=== PATIENT | male | born 1985 | race Caucasian/White ===

== ENCOUNTER 2023-10-30 13:14 | Inpatient (IN) | payer MEDICAID ==
[~2023-10-30] VITALS: Ht 167.6 cm; Wt 106.3 kg
[2023-10-30 13:50] LABS: Basophils # (auto) 0.1 10 ^3/uL (0-0.2); Basophils % (auto) 0.8 % (0.0-2.0); Eosinophils # (auto) 0.1 10 ^3/uL (0-0.8); Hematocrit 38.9 % (41.0-53.0); Hemoglobin 13.7 g/dL (13.5-17.5); Lymphocytes # (auto) 2.7 10 ^3/uL (0.4-5.4); Lymphocytes % (auto) 17.7 % (10.0-50.0); Mean Corpuscular Hgb Conc. 35.2 g/dL (32.0-36.0); Mean Corpuscular Volume 82.4 fL (80.0-100.0); Monocytes # (auto) 1.2 10 ^3/uL (0-1.3); Monocytes % (auto) 8.3 % (0.0-12.0); Neutrophils # (auto) 10.9 10 ^3/uL (1.6-8.6); Neutrophils % (auto) 72.2 % (37.0-80.0); Platelet Count (auto) 269 10^3/uL (140-450); Red Blood Cells 4.72 10^6/uL (4.5-5.90); Red Cell Distribution Width 15.2 % (11.8-14.3); White Blood Cell 15.1 10^3/uL (4.4-10.8)
[2023-10-30 14:01] VITALS: PULSE 46; RESP 12; O2SAT 98
[2023-10-30] MEDS: cloNIDine HCL 0.1 MG TAB PO ONE (14:01)
[2023-10-30] MEDS: SODIUM CHLORIDE 0.9% 1,000 ML IV ONE ×2 (14:01→16:32)
[2023-10-30 14:04] LABS: INR 1.14 (0.9-1.15); Partial Thromboplastin Time 23.9 SEC (24.5-34.5)
[2023-10-30] MEDS: ASPirin 325 MG TAB PO ONE (14:06)
[2023-10-30 14:10] LABS: Alanine Aminotransferase 36 U/L (7-40); Alkaline Phosphatase 79 U/L (46-116); Anion Gap 10 (5-15); Aspartate Aminotransferase 24 U/L (13-40); BUN/Creatinine Ratio 7.5 (10.0-20.0); Bilirubin, Total 1.4 mg/dL (0.2-1.0); Blood Urea Nitrogen 12 mg/dL (9-23); Calcium 10.1 mg/dL (8.7-10.4); Carbon Dioxide 29 mmol/L (20-30); Chloride 103 mmol/L (98-107); Glucose 114 mg/dL (74-106); Potassium 3.3 mmol/L (3.5-5.1); Sodium 142 mmol/L (136-145); Total Protein 7.3 g/dL (5.7-8.2)
[2023-10-30] MEDS: ONDANSETRON HCL 4 MG/2 ML VIAL IV ONE (14:47)
[2023-10-30] MEDS: MORPHINE SULFATE 4 MG/ML SYR/VIAL IV ONE ×2 (14:47→16:13)
[2023-10-30] MEDS ORDERED: ACETAMINOPHEN 325 MG TAB PO PRN (15:15)
[2023-10-30] MEDS ORDERED: HYDROcodone-ACET 5/325MG TAB PO PRN (15:15)
[2023-10-30] MEDS: POTASSIUM EFFERVESENT TAB 25 MEQ PO ONE (15:31)
[2023-10-30] MEDS: HYDROmorphone HCL 2 MG/ML VL/or syr IV ONE (16:13)
[2023-10-30] MEDS: FAMOTIDINE (10MG/ML) 2ML VL IV ONE (17:11)
[2023-10-30] MEDS: cefTRIAXone 1GM/50ML D5W 50 ML IV ONE (17:12)
[2023-10-30] MEDS ORDERED: MORPHINE SULFATE INJ 2 MG/ml SYRG IV PRN (17:45)
[2023-10-30] MEDS ORDERED: NITROGLYCERIN 0.4 MG SL TAB SL PRN (17:45)
[2023-10-30] MEDS: ONDANSETRON HCL 4 MG/2 ML VIAL IV PRN (17:56)
[2023-10-30] MEDS: METOCLOPRAMIDE HCL 5MG/ml INJ 2ml VIAL IV ONE (18:02)
[2023-10-30] MEDS: MORPHINE SULFATE INJ 2 MG/ml SYRG IV PRN (18:25)
[2023-10-30] MEDS: hydrALAZINE HCL 20 MG/ML VL IV PRN (18:26)
[2023-10-30 18:33] LABS: Urine Bacteria None Seen /hpf (None Seen)
[2023-10-30 18:48] LABS: Urine Blood Negative /uL (Negative); Urine Clarity Clear (Clear); Urine Color Yellow (Yellow); Urine Mucus FEW (None Seen); Urine Protein, UAD 2+ (Negative); Urine Specific Gravity 1.019 (1.001-1.035); Urine Urobilinogen Normal (Negative); Urine WBC 1 /hpf (0 - 3)
[2023-10-30 19:25] VITALS: PULSE 102; RESP 18; O2SAT 98
[2023-10-30] MEDS: METOPROLOL TARTRATE 50 MG TAB PO ONE (21:00)
[2023-10-30] MEDS: cloNIDine HCL 0.1 MG TAB PO PRN (21:57)
[2023-10-30] MEDS: SODIUM CHLOR 0.9% PF (SALINE LOCK) 10ML VIAL/SYR IV SCH (22:00)
[2023-10-30] MEDS: amLODIPine BESYLATE 5 MG TAB PO ONE (23:29)
[2023-10-30] MEDS: dilTIAZem 25 MG/5 ML VIAL IV ONE (23:58)
[2023-10-31] VITALS (63 sets, daily range): BP systolic 101–205; BP diastolic 55–126; PULSE 65–109; RESP 12–32; TEMP 97.6–98.9; O2SAT 88–96
[2023-10-31] MEDS: dilTIAZem 125mg/125ml BAG KIT 100 ML IV SCH (00:01)
[2023-10-31 06:20] LABS: Basophils # (auto) 0 10 ^3/uL (0-0.2); Basophils % (auto) 0.1 % (0.0-2.0); Eosinophils # (auto) 0 10 ^3/uL (0-0.8); Eosinophils % (auto) 0.1 % (0.0-7.0); Hematocrit 41.8 % (41.0-53.0); Hemoglobin 14.4 g/dL (13.5-17.5); Lymphocytes # (auto) 1.9 10 ^3/uL (0.4-5.4); Lymphocytes % (auto) 7.9 % (10.0-50.0); Mean Corpuscular Hemoglobin 29.1 pg (28.0-32.0); Mean Corpuscular Hgb Conc. 34.5 g/dL (32.0-36.0); Mean Corpuscular Volume 84.2 fL (80.0-100.0); Monocytes # (auto) 2.5 10 ^3/uL (0-1.3); Monocytes % (auto) 10.3 % (0.0-12.0); Neutrophils % (auto) 81.6 % (37.0-80.0); Nucleated Red Blood Cells % 0.1 %; Platelet Count (auto) 297 10^3/uL (140-450); Red Blood Cells 4.97 10^6/uL (4.5-5.90); Red Cell Distribution Width 15.3 % (11.8-14.3); White Blood Cell 24.5 10^3/uL (4.4-10.8)
[2023-10-31 06:42] LABS: Alanine Aminotransferase 47 U/L (7-40); Alkaline Phosphatase 75 U/L (46-116); Anion Gap 20 (5-15); Aspartate Aminotransferase 39 U/L (13-40); BUN/Creatinine Ratio 7.5 (10.0-20.0); Blood Urea Nitrogen 12 mg/dL (9-23); Calcium 9.7 mg/dL (8.7-10.4); Chloride 101 mmol/L (98-107); Glucose 199 mg/dL (74-106); Sodium 138 mmol/L (136-145)
[2023-10-31 06:43] LABS: Bilirubin, Total 2.5 mg/dL (0.2-1.0); Total Protein 7.8 g/dL (5.7-8.2)
[2023-10-31 06:50] LABS: Carbon Dioxide 17 mmol/L (20-30)
[2023-10-31] MEDS: POTASSIUM CHL 20MEQ/100ML 100 ML IV ONE (07:43)
[2023-10-31] MEDS: cefTRIAXone 1GM/50ML D5W 50 ML IV SCH (09:32)
[2023-10-31] MEDS: METOPROLOL TARTRATE 50 MG TAB PO SCH (09:33)
[2023-10-31] MEDS: ASPirin 81 mg TAB PO SCH (09:34)
[2023-10-31] MEDS: amLODIPine BESYLATE 5 MG TAB PO SCH (09:34)
[2023-10-31] MEDS: FAMOTIDINE (10MG/ML) 2ML VL IV SCH (09:35)
[2023-10-31 10:46] LABS: Triglycerides 92 mg/dL (< 150)
[2023-10-31 10:47] LABS: Cholesterol 194 mg/dL (< 200); HDL Cholesterol 55 mg/dL (40-59); LDL Cholesterol 127 mg/dL (< 100)
[2023-10-31 12:23] LABS: Amphetamine Screen, Urine Neg (NEGATIVE); Barbiturate Scree,Urine Neg (NEGATIVE)
[2023-10-31 12:24] LABS: Benzodiazephine Screen, Urine Neg (NEGATIVE); Cannabinoid Screen, Urine Pos (NEGATIVE); Cocaine Screen, Urine Neg (NEGATIVE); Creatinine, Urine 211.35 mg/dL (30.0-125.0); Opiate Scree,Urine Pos (NEGATIVE); Phencyclidine Screen, Urine Neg (NEGATIVE)
[2023-10-31 16:07] LABS: Chloride 101 mmol/L (98-107); Potassium 3.6 mmol/L (3.5-5.1); Sodium 136 mmol/L (136-145)
[2023-10-31 16:08] LABS: Anion Gap 16 (5-15); Calcium 9.6 mg/dL (8.7-10.4); Carbon Dioxide 19 mmol/L (20-30)
[2023-10-31 16:13] LABS: BUN/Creatinine Ratio 7.6 (10.0-20.0); Blood Urea Nitrogen 17 mg/dL (9-23); Glucose 120 mg/dL (74-106)
[2023-10-31] MEDS: ATORVASTATIN 20 MG TAB PO SCH (21:41)
[2023-10-31] MEDS ORDERED: hydrALAZINE HCL 25 MG TAB PO SCH (22:00)
[2023-10-31] MEDS ORDERED: MELATONIN 5 MG TAB ONE (22:57)
[2023-10-31] MEDS: hydrALAZINE HCL 20 MG/ML VL IV PRN (22:58)
[2023-10-31] MEDS: MELATONIN 5 MG TAB PO SCH (22:58)
[2023-11-01] VITALS (40 sets, daily range): BP systolic 121–196; BP diastolic 81–119; PULSE 91–121; RESP 13–29; TEMP 97.6–98.3; O2SAT 92–97
[2023-11-01 03:58] LABS: Urine Bacteria None Seen /hpf (None Seen)
[2023-11-01 04:11] LABS: Sodium Urine < 10 mmol/L (40-220)
[2023-11-01 04:19] LABS: Creatinine, Urine 205.96 mg/dL (30.0-125.0)
[2023-11-01 04:46] LABS: Urine Amorphous Crystal FEW /hpf (None Seen); Urine Blood 2+ /uL (Negative); Urine Clarity Turbid (Clear); Urine Color Yellow (Yellow); Urine Hyaline Cast MANY /lpf (0 - 2); Urine Mucus FEW (None Seen); Urine Protein, UAD 2+ (Negative); Urine Specific Gravity 1.022 (1.001-1.035); Urine Urobilinogen Normal (Negative); Urine WBC 4 /hpf (0 - 3); Urine pH 5.5 (5.0-9.0)
[2023-11-01] MEDS: hydrALAZINE HCL 20 MG/ML VL IV ONE (05:29)
[2023-11-01 06:22] LABS: Anion Gap 13 (5-15); Carbon Dioxide 20 mmol/L (20-30); Chloride 98 mmol/L (98-107)
[2023-11-01 06:23] LABS: Calcium 9.5 mg/dL (8.7-10.4)
[2023-11-01 06:27] LABS: Uric Acid 10.8 mg/dL (3.7-9.2)
[2023-11-01 06:28] LABS: BUN/Creatinine Ratio 12.7 (10.0-20.0); Glucose 131 mg/dL (74-106)
[2023-11-01 06:29] LABS: Blood Urea Nitrogen 27 mg/dL (9-23); Sodium 131 mmol/L (136-145)
[2023-11-01 06:30] LABS: Phosphorus 3.6 mg/dL (2.4-5.1)
[2023-11-01 07:28] LABS: Hematocrit 39.9 % (41.0-53.0); Hemoglobin 13.7 g/dL (13.5-17.5); Mean Corpuscular Hemoglobin 28.5 pg (28.0-32.0); Mean Corpuscular Hgb Conc. 34.3 g/dL (32.0-36.0); Mean Corpuscular Volume 83.2 fL (80.0-100.0); Platelet Count (auto) 250 10^3/uL (140-450); Red Blood Cells 4.79 10^6/uL (4.5-5.90); Red Cell Distribution Width 15.9 % (11.8-14.3)
[2023-11-01 07:34] LABS: White Blood Cell 30.5 10^3/uL (4.4-10.8)
[2023-11-01 07:35] LABS: Band Neutrophils % (manual) 0; Basophils % (manual) 0 (0.0-2.0); Blast Cells 0; Eosinophils % (manual) 0 (0-7); Metamyelocytes % 0; Myelocytes % 0; Promyelocytes % 0; Reactive Lymphocytes 0
[2023-11-01] MEDS: hydrALAZINE HCL 20 MG/ML VL IV PRN (08:04)
[2023-11-01] MEDS: POTASSIUM CHL 20MEQ/100ML 100 ML IV ONE (10:13)
[2023-11-01] MEDS: POTASSIUM EFFERVESENT TAB 25 MEQ PO ONE (10:13)
[2023-11-01] MEDS: ISOSORBIDE MONONITRATE ER 60 MG TAB PO SCH (10:14)
[2023-11-01] MEDS: EMPAGLIFLOZIN 10 MG TAB PO SCH (10:14)
[2023-11-01 10:34] LABS: Lymphocytes % (manual) 15 (10.0-50.0); Monocytes % (manual) 9 (0-12)
[2023-11-01 10:35] LABS: Platelet Estimate Adequate
[2023-11-01] MEDS: NIFEdipine ER 30 MG TAB PO SCH (21:18)
[2023-11-01] MEDS: CARVEDILOL 12.5 MG TAB PO SCH (21:19)
[2023-11-01] MEDS ORDERED: NIFEdipine 10 MG CAP PO SCH (22:00)
[2023-11-02] VITALS (19 sets, daily range): BP systolic 112–162; BP diastolic 64–93; PULSE 83–95; RESP 12–28; TEMP 97.6–98; O2SAT 86–95
[2023-11-02 06:57] LABS: Basophils # (auto) 0 10 ^3/uL (0-0.2); Basophils % (auto) 0.1 % (0.0-2.0); Eosinophils # (auto) 0 10 ^3/uL (0-0.8); Hematocrit 34.7 % (41.0-53.0); Lymphocytes # (auto) 1.9 10 ^3/uL (0.4-5.4); Lymphocytes % (auto) 8.1 % (10.0-50.0); Mean Corpuscular Hemoglobin 28.9 pg (28.0-32.0); Mean Corpuscular Hgb Conc. 34.8 g/dL (32.0-36.0); Mean Corpuscular Volume 83.2 fL (80.0-100.0); Monocytes # (auto) 1.6 10 ^3/uL (0-1.3); Monocytes % (auto) 7.1 % (0.0-12.0); Neutrophils # (auto) 19.6 10 ^3/uL (1.6-8.6); Neutrophils % (auto) 84.7 % (37.0-80.0); Platelet Count (auto) 178 10^3/uL (140-450); Red Blood Cells 4.17 10^6/uL (4.5-5.90); Red Cell Distribution Width 15.4 % (11.8-14.3); White Blood Cell 23.1 10^3/uL (4.4-10.8)
[2023-11-02 07:15] LABS: Alanine Aminotransferase 538 U/L (7-40); Albumin 4.4 g/dL (3.2-4.8); Alkaline Phosphatase 80 U/L (46-116); Anion Gap 10 (5-15); Aspartate Aminotransferase 363 U/L (13-40); BUN/Creatinine Ratio 16.7 (10.0-20.0); Blood Urea Nitrogen 29 mg/dL (9-23); Calcium 9.4 mg/dL (8.7-10.4); Carbon Dioxide 24 mmol/L (20-30); Chloride 97 mmol/L (98-107); Glucose 118 mg/dL (74-106); Potassium 3.6 mmol/L (3.5-5.1); Sodium 131 mmol/L (136-145)
[2023-11-02 07:16] LABS: Bilirubin, Total 1.7 mg/dL (0.2-1.0); Total Protein 6.9 g/dL (5.7-8.2)
[2023-11-02 09:14] LABS: Hepatitis B Surface Antigen Negative (Negative)
[2023-11-02 09:36] LABS: Hepatitis A Ab IgM Negative
[2023-11-02 09:37] LABS: Hepatitis B Core IgM Negative; Hepatitis C Antibody Negative (Negative)
[2023-11-02] MEDS: LEVALBUTEROL HCL 1.25 MG/3 ML NEB NEB ONE (19:32)
[2023-11-02] MEDS: DOCUSATE SOD 100 MG CAP PO PRN (20:37)
[2023-11-02 20:47] LABS: COVID19 ANTIGEN SOFIA FIA NEGATIVE (NEGATIVE); Rapid Influenza A Negative (Negative); Rapid Influenza B Negative (Negative)
[2023-11-03] VITALS (16 sets, daily range): BP systolic 106–143; BP diastolic 59–80; PULSE 72–108; RESP 17–20; TEMP 97.5–98.4; O2SAT 90–99
[2023-11-03] MEDS: LEVALBUTEROL HCL 1.25 MG/3 ML NEB NEB SCH (00:06)
[2023-11-03 07:00] LABS: Basophils # (auto) 0 10 ^3/uL (0-0.2); Basophils % (auto) 0.1 % (0.0-2.0); Eosinophils # (auto) 0 10 ^3/uL (0-0.8); Eosinophils % (auto) 0.1 % (0.0-7.0); Hematocrit 33.4 % (41.0-53.0); Hemoglobin 11.6 g/dL (13.5-17.5); Lymphocytes # (auto) 2.5 10 ^3/uL (0.4-5.4); Lymphocytes % (auto) 12.3 % (10.0-50.0); Mean Corpuscular Hgb Conc. 34.9 g/dL (32.0-36.0); Mean Corpuscular Volume 83.3 fL (80.0-100.0); Monocytes # (auto) 1.9 10 ^3/uL (0-1.3); Monocytes % (auto) 9.5 % (0.0-12.0); Neutrophils # (auto) 15.8 10 ^3/uL (1.6-8.6); Nucleated Red Blood Cells % 0.1 %; Platelet Count (auto) 232 10^3/uL (140-450); Red Blood Cells 4.01 10^6/uL (4.5-5.90); Red Cell Distribution Width 15.3 % (11.8-14.3); White Blood Cell 20.3 10^3/uL (4.4-10.8)
[2023-11-03 07:08] LABS: Alanine Aminotransferase 454 U/L (7-40); Albumin 4.4 g/dL (3.2-4.8); Alkaline Phosphatase 99 U/L (46-116); Anion Gap 11 (5-15); BUN/Creatinine Ratio 20.4 (10.0-20.0); Blood Urea Nitrogen 30 mg/dL (9-23); Calcium 9.6 mg/dL (8.7-10.4); Carbon Dioxide 24 mmol/L (20-31); Chloride 98 mmol/L (98-107); Glucose 103 mg/dL (74-106); Potassium 3.2 mmol/L (3.5-5.1); Sodium 133 mmol/L (136-145)
[2023-11-03 07:09] LABS: Aspartate Aminotransferase 177 U/L (13-40); Bilirubin, Total 1.6 mg/dL (0.2-1.0)
[2023-11-03 09:29] LABS: Base Excess 2.1 mmol/L (-2.0-3.0)
[2023-11-03] MEDS: POTASSIUM CHL 20 Meq TABLET PO ONE (10:22)
[2023-11-03] MEDS: AZITHROMYCIN 500MG/ 250ML 250 ML IV ONE (13:55)
[2023-11-04] VITALS (13 sets, daily range): BP systolic 102–153; BP diastolic 63–84; PULSE 78–92; RESP 18–20; TEMP 97.9–99.6; O2SAT 90–96
[2023-11-04 06:17] LABS: Basophils # (auto) 0 10 ^3/uL (0-0.2); Basophils % (auto) 0.3 % (0.0-2.0); Eosinophils # (auto) 0 10 ^3/uL (0-0.8); Eosinophils % (auto) 0.2 % (0.0-7.0); Hematocrit 34.8 % (41.0-53.0); Hemoglobin 12.2 g/dL (13.5-17.5); Lymphocytes # (auto) 2.6 10 ^3/uL (0.4-5.4); Lymphocytes % (auto) 14.6 % (10.0-50.0); Mean Corpuscular Hemoglobin 29.7 pg (28.0-32.0); Mean Corpuscular Hgb Conc. 35.1 g/dL (32.0-36.0); Mean Corpuscular Volume 84.5 fL (80.0-100.0); Monocytes # (auto) 2.2 10 ^3/uL (0-1.3); Monocytes % (auto) 12.5 % (0.0-12.0); Neutrophils # (auto) 12.7 10 ^3/uL (1.6-8.6); Neutrophils % (auto) 72.4 % (37.0-80.0); Platelet Count (auto) 241 10^3/uL (140-450); Red Blood Cells 4.12 10^6/uL (4.5-5.90); Red Cell Distribution Width 15.5 % (11.8-14.3); White Blood Cell 17.5 10^3/uL (4.4-10.8)
[2023-11-04 06:22] LABS: Alanine Aminotransferase 326 U/L (7-40); Albumin 4.4 g/dL (3.2-4.8); Alkaline Phosphatase 115 U/L (46-116); Anion Gap 11 (5-15); Aspartate Aminotransferase 82 U/L (13-40); BUN/Creatinine Ratio 17.7 (10.0-20.0); Blood Urea Nitrogen 22 mg/dL (9-23); Calcium 9.5 mg/dL (8.7-10.4); Carbon Dioxide 24 mmol/L (20-31); Chloride 100 mmol/L (98-107); Glucose 100 mg/dL (74-106); Potassium 3.2 mmol/L (3.5-5.1); Sodium 135 mmol/L (136-145)
[2023-11-04 06:23] LABS: Bilirubin, Total 1.7 mg/dL (0.2-1.0); Total Protein 7.2 g/dL (5.7-8.2)
[2023-11-04 08:06] LABS: CMV IgG Antibody <0.60 U/mL (0.00-0.59); CMV IgM Antibody <30.0 AU/mL (0.0-29.9); EBV Ab VCA IgM Antibody <36.0 U/mL (0.0-35.9); EBV Early Antigen IgG Antibody <18.0 U/mL (0.0-17.9)
[2023-11-04] MEDS: POTASSIUM CHL 20 Meq TABLET PO ONE ×3 (09:15→14:45)
[2023-11-04] MEDS: AZITHROMYCIN 500MG/ 250ML 250 ML IV SCH (09:24)
[2023-11-04 11:07] LABS: Anti-Centromere B Antibody <0.2 AI (0.0-0.9); Anti-Jo-1 Antibody <0.2 AI (0.0-0.9); Anti-dsDNA Antibody <1 IU/mL (0-9); Antichromatin Antibody <0.2 AI (0.0-0.9); Antiscleroderma-70 Antibody <0.2 AI (0.0-0.9); RNP Antibody <0.2 AI (0.0-0.9); Sjogren's Anti-SS-A Antibody <0.2 AI (0.0-0.9); Sjogren's Anti-SS-B Antibody <0.2 AI (0.0-0.9); Smith Antibody <0.2 AI (0.0-0.9)
[2023-11-04] MEDS: ENOXAPARIN SOD 40 MG/0.4 ML SYRINGE SC ONE (13:13)
[2023-11-05] VITALS (17 sets, daily range): BP systolic 106–137; BP diastolic 68–79; PULSE 54–103; RESP 16–20; TEMP 98–99.2; O2SAT 91–96
[2023-11-05 00:09] LABS: Erythrocyte Sedimentation Rate 67 mm/hr (0-20)
[2023-11-05] MEDS: POTASSIUM CHL 20 Meq TABLET PO SCH (09:15)
[2023-11-05] MEDS: ENOXAPARIN SOD 40 MG/0.4 ML SYRINGE SC SCH (09:16)
[2023-11-05] MEDS: SPIRONOLACTONE 25 MG TAB PO SCH (09:17)
[2023-11-05] MEDS: EMPAGLIFLOZIN 10 MG TAB PO SCH (09:17)
[2023-11-05] MEDS: NIFEdipine ER 30 MG TAB PO SCH (09:20)
[2023-11-05] MEDS: VALSARTAN 80 MG TAB PO SCH (09:31)
[2023-11-05 10:34] LABS: Basophils # (auto) 0 10 ^3/uL (0-0.2); Basophils % (auto) 0.2 % (0.0-2.0); Eosinophils # (auto) 0.1 10 ^3/uL (0-0.8); Eosinophils % (auto) 0.4 % (0.0-7.0); Hematocrit 35.4 % (41.0-53.0); Hemoglobin 11.9 g/dL (13.5-17.5); Lymphocytes % (auto) 13.7 % (10.0-50.0); Mean Corpuscular Hemoglobin 28.7 pg (28.0-32.0); Mean Corpuscular Hgb Conc. 33.6 g/dL (32.0-36.0); Mean Corpuscular Volume 85.2 fL (80.0-100.0); Monocytes # (auto) 1.9 10 ^3/uL (0-1.3); Monocytes % (auto) 12.8 % (0.0-12.0); Neutrophils # (auto) 10.7 10 ^3/uL (1.6-8.6); Neutrophils % (auto) 72.9 % (37.0-80.0); Nucleated Red Blood Cells % 0.1 %; Platelet Count (auto) 290 10^3/uL (140-450); Red Blood Cells 4.15 10^6/uL (4.5-5.90); Red Cell Distribution Width 15.6 % (11.8-14.3); White Blood Cell 14.7 10^3/uL (4.4-10.8)
[2023-11-05] MEDS: POTASSIUM EFFERVESENT TAB 25 MEQ PO ONE (10:40)
[2023-11-05 11:03] LABS: Alanine Aminotransferase 221 U/L (7-40); Alkaline Phosphatase 137 U/L (46-116); Anion Gap 11 (5-15); Aspartate Aminotransferase 55 U/L (13-40); BUN/Creatinine Ratio 16.5 (10.0-20.0); Blood Urea Nitrogen 19 mg/dL (9-23); Calcium 9.2 mg/dL (8.7-10.4); Carbon Dioxide 24 mmol/L (20-31); Chloride 101 mmol/L (98-107); Glucose 129 mg/dL (74-106); Potassium 3.4 mmol/L (3.5-5.1); Sodium 136 mmol/L (136-145)
[2023-11-05 11:04] LABS: Albumin 4.3 g/dL (3.2-4.8); Creatine Kinase IFCC 39 U/L (46-171)
[2023-11-05 11:05] LABS: Bilirubin, Total 1.7 mg/dL (0.2-1.0)
[2023-11-06] VITALS (18 sets, daily range): BP systolic 132–147; BP diastolic 69–90; PULSE 74–91; RESP 15–22; TEMP 97.7–99.5; O2SAT 89–100
[2023-11-06 06:37] LABS: Basophils # (auto) 0.1 10 ^3/uL (0-0.2); Basophils % (auto) 0.4 % (0.0-2.0); Eosinophils # (auto) 0.1 10 ^3/uL (0-0.8); Eosinophils % (auto) 0.9 % (0.0-7.0); Hematocrit 33.5 % (41.0-53.0); Hemoglobin 11.3 g/dL (13.5-17.5); Lymphocytes % (auto) 13.6 % (10.0-50.0); Mean Corpuscular Hemoglobin 28.4 pg (28.0-32.0); Mean Corpuscular Hgb Conc. 33.7 g/dL (32.0-36.0); Mean Corpuscular Volume 84.1 fL (80.0-100.0); Monocytes # (auto) 2.3 10 ^3/uL (0-1.3); Monocytes % (auto) 15.3 % (0.0-12.0); Neutrophils # (auto) 10.3 10 ^3/uL (1.6-8.6); Neutrophils % (auto) 69.8 % (37.0-80.0); Platelet Count (auto) 306 10^3/uL (140-450); Red Blood Cells 3.98 10^6/uL (4.5-5.90); Red Cell Distribution Width 15.4 % (11.8-14.3); White Blood Cell 14.8 10^3/uL (4.4-10.8)
[2023-11-06 06:52] LABS: Alanine Aminotransferase 172 U/L (7-40); Alkaline Phosphatase 127 U/L (46-116); Anion Gap 8 (5-15); Calcium 9.1 mg/dL (8.7-10.4); Carbon Dioxide 27 mmol/L (20-31); Chloride 102 mmol/L (98-107); Potassium 3.8 mmol/L (3.5-5.1); Sodium 137 mmol/L (136-145)
[2023-11-06 06:53] LABS: Aspartate Aminotransferase 53 U/L (13-40); BUN/Creatinine Ratio 15.4 (10.0-20.0); Blood Urea Nitrogen 19 mg/dL (9-23); Glucose 87 mg/dL (74-106)
[2023-11-06 06:55] LABS: Albumin 4.1 g/dL (3.2-4.8); Bilirubin, Total 1.5 mg/dL (0.2-1.0); Total Protein 6.7 g/dL (5.7-8.2)
[2023-11-06] MEDS ORDERED: POLYETHYLENE GLYCOL 17 GM PWDR PO PRN (09:15)
[2023-11-06] MEDS: POLYETHYLENE GLYCOL 17 GM PWDR PO ONE (09:44)
[2023-11-06] MEDS: DOCUSATE SOD 100 MG CAP PO PRN (09:45)
[2023-11-06 10:21] LABS: Free T3 2.01 pg/mL (2.3-4.2)
[2023-11-06 10:22] LABS: Free T4 (Free Thyroxine) 1.15 ng/dL (0.89-1.76)
[2023-11-06] MEDS ORDERED: IODIXANOL 320MG/ML 100ML BTL IV ONE (12:14)
[2023-11-06] MEDS ORDERED: ANGIOMAX 250 MG VIAL IV ONE (12:20)
[2023-11-06] MEDS ORDERED: VERAPAMIL 2.5MG/ML INJ 2ML VIAL IV ONE (12:21)
[2023-11-06] MEDS ORDERED: MIDAZOLAM HCL 2MG/2ML 2ml VIAL (1mg/ml) ONE (12:21)
[2023-11-06] MEDS ORDERED: SODIUM CHL 0.9% 0 ML ONE (12:21)
[2023-11-06] MEDS ORDERED: LIDOCAINE 2%HCL (LOCAL ANESTH.) INJ 20ML MDV ONE (12:21)
[2023-11-06] MEDS ORDERED: fentaNYL CITRATE 100 MCG/2 ML VL ONE (12:21)
[2023-11-06] MEDS ORDERED: HEPARIN SODIUM (PORCINE) 5000 UNITS/ML 1ML VIAL ONE (12:21)
[2023-11-06] MEDS ORDERED: VANCOMYCIN PER PHARMACY 0 MG IV SCH (14:00)
[2023-11-06] MEDS: VANCOMYCIN 1GM/200ML 200 ML IV SCH (14:32)
[2023-11-06] MEDS: NIFEdipine ER 30 MG TAB PO SCH (23:06)
[2023-11-07] VITALS (8 sets, daily range): BP systolic 141–146; BP diastolic 75–86; PULSE 60–89; RESP 16–20; TEMP 98.1–98.3; O2SAT 93–99
[2023-11-07 06:07] LABS: Alanine Aminotransferase 128 U/L (7-40); Albumin 4.2 g/dL (3.2-4.8); Alkaline Phosphatase 119 U/L (46-116); Anion Gap 8 (5-15); Aspartate Aminotransferase 34 U/L (13-40); BUN/Creatinine Ratio 12.5 (10.0-20.0); Basophils # (auto) 0.1 10 ^3/uL (0-0.2); Basophils % (auto) 0.7 % (0.0-2.0); Blood Urea Nitrogen 16 mg/dL (9-23); Calcium 9.5 mg/dL (8.7-10.4); Carbon Dioxide 24 mmol/L (20-31); Chloride 104 mmol/L (98-107); Eosinophils # (auto) 0.2 10 ^3/uL (0-0.8); Eosinophils % (auto) 1.2 % (0.0-7.0); Glucose 93 mg/dL (74-106); Hematocrit 34.9 % (41.0-53.0); Hemoglobin 12.1 g/dL (13.5-17.5); Lymphocytes % (auto) 13.4 % (10.0-50.0); Mean Corpuscular Hemoglobin 29.1 pg (28.0-32.0); Mean Corpuscular Hgb Conc. 34.6 g/dL (32.0-36.0); Monocytes % (auto) 13.6 % (0.0-12.0); Neutrophils # (auto) 10.4 10 ^3/uL (1.6-8.6); Neutrophils % (auto) 71.1 % (37.0-80.0); Nucleated Red Blood Cells % 0.1 %; Platelet Count (auto) 329 10^3/uL (140-450); Potassium 3.9 mmol/L (3.5-5.1); Red Blood Cells 4.16 10^6/uL (4.5-5.90); Red Cell Distribution Width 15.6 % (11.8-14.3); Sodium 136 mmol/L (136-145); White Blood Cell 14.6 10^3/uL (4.4-10.8)
[2023-11-07 06:08] LABS: Bilirubin, Total 1.5 mg/dL (0.2-1.0); Total Protein 7.1 g/dL (5.7-8.2)
[2023-11-07] MEDS: VALSARTAN 80 MG TAB PO SCH (09:55)
[2023-11-07] MEDS ORDERED: ENOXAPARIN SOD 30 MG/0.3 ML SYRINGE SC SCH (10:00)
[2023-11-07] MEDS: VANCOMYCIN 1.5GM/300ML 300 ML IV SCH (12:00)
[2023-11-07] MEDS ORDERED: SODIUM CHLORIDE 0.9% 1,000 ML IV ONE (12:15)
[2023-11-07] MEDS: LEVOTHYROXINE SODIUM 25 MCG TAB PO ONE (12:58)
[2023-11-08] MEDS ORDERED: LEVOTHYROXINE SODIUM 25 MCG TAB PO SCH (06:00)
[2023-11-11 03:06] LABS: Renin Activity 6.7 ng/mL/hr (.)
== END 2023-11-07 13:10 | disposition left against medical advice (07) | DRG 720 ==
LOC: ER 13:14 → TELE 17:36 → DOU IN ICU 10-31 03:40 → TELE-EAST 11-02 13:45
PROVIDERS: ADMIT Internal Medicine; ATTEND Internal Medicine
PROC: 4A023N7 Measurement of Cardiac Sampling and Pressure, Left Heart, Percutaneous Approach (ICD-10-PCS; principal; 2023-11-06)
PROC: B211YZZ Fluoroscopy of Multiple Coronary Arteries using Other Contrast (ICD-10-PCS; 2023-11-06)
DX: A41.9 Sepsis, unspecified organism (principal); J96.00 Acute respiratory failure, unspecified whether with hypoxia or hypercapnia; N17.0 Acute kidney failure with tubular necrosis; I21.4 Non-ST elevation (NSTEMI) myocardial infarction; I50.23 Acute on chronic systolic (congestive) heart failure; I11.0 Hypertensive heart disease with heart failure; J12.9 Viral pneumonia, unspecified; E78.5 Hyperlipidemia, unspecified; E66.01 Morbid (severe) obesity due to excess calories; Z20.822 Contact with and (suspected) exposure to COVID-19; F17.290 Nicotine dependence, other tobacco product, uncomplicated; E87.6 Hypokalemia; J44.9 Chronic obstructive pulmonary disease, unspecified; D72.829 Elevated white blood cell count, unspecified; K76.0 Fatty (change of) liver, not elsewhere classified; I48.91 Unspecified atrial fibrillation; E03.9 Hypothyroidism, unspecified; I16.1 Hypertensive emergency; Z83.3 Family history of diabetes mellitus; Z82.49 Family history of ischemic heart disease and other diseases of the circulatory system; Z53.29 Procedure and treatment not carried out because of patient's decision for other reasons; Z63.8 Other specified problems related to primary support group
CPT/HCPCS: 36415; 36600; 71045; 71250; 74176; 76705; 76775; 78582; 80048; 80053; 80061; 80074; 80202; 80307; 81001; 82088; 82306; 82550; 82570; 82805; 83036; 83516; 83615; 83735; 83880; 84100; 84156; 84244; 84300; 84439; 84443; 84481; 84484; 84550; 85007; 85025; 85027; 85060; 85610; 85652; 85730; 86141; 86225; 86235; 86644; 86645; 86664; 86703; 87040; 87077; 87081; 87086; 87186; 87426; 87804; 93005; 93306; 93458; 93970; 94640; 97110; 97116; 97163; 97530; 99152; 99291; G0378; J2250; J2405; J3480; J3490; Q9967